=== PATIENT | male | born 1970 | race Two or more races ===

== ENCOUNTER 2024-07-12 11:10 | Emergency (ER) | payer OTHER ==
[~2024-07-12] VITALS: Ht 172.7 cm; Wt 105.2 kg
[2024-07-12] MEDS ORDERED: AVAPRO300 MG (11:27)
[2024-07-12 15:43] LABS: HEMATOCRIT 43.2 % (39.0-48.0); HEMOGLOBIN 14.8 g/dL (13-16.00); MEAN CELL VOLUME 87.8 fL (80.0-100.00); MEAN CORPUSCULAR HEMOGLOBIN 30.1 pg (27.00-32.0); MEAN CORPUSCULAR HGB CONC 34.3 g/dl (32.0-36.0); PLATELET COUNT 234 K/uL (150-450); RED BLOOD COUNT 4.92 M/uL (4.00-6.00); RED CELL DISTRIBUTION WIDTH 12.4 % (11.5-14.5)
[2024-07-12] MEDS ORDERED: OSEL75CA PO (20:03)
[2024-07-12] MEDS ORDERED: PAXLOVID 150-11 EAC1 PO (20:03)
== END 2024-07-12 20:38 | disposition home or self-care (01) ==
LOC: ER 11:12
PROVIDERS: General Practice
DX: U07.1 COVID-19 (principal); J10.1 Influenza due to other identified influenza virus with other respiratory manifestations; Z88.0 Allergy status to penicillin